=== PATIENT | male | born 1970 | race Caucasian/White ===

== ENCOUNTER → 2021-06-12 13:23 | Outpatient (CLI) | payer OTHER, SELFPAY ==
--- NOTE | 2021-06-12 | DI.MRI.S_ITS ---
PROCEDURE: MR SHOULDER RT W CON INDICATIONS: PAIN IN RIGHT SHOULDER TECHNIQUE: After the administration of 12 mL of dilute intra-articular Gadolinium contrast, oblique coronal T1 and T2 spin echo with fat saturation, oblique sagittal T1 spin echo with and without fat saturation, oblique sagittal T2 fast spin echo with fat saturation, axial T1 spin echo with fat saturation through the shoulder. COMPARISON: [facility], , [place] SHOULDER INJECTION MR/CT RT, 06/12/2021, 13:57. FINDINGS: Rotator cuff: Supraspinatus tendinopathy with partial thickness articular and bursal sided tear of the critical zone. There is small amount of gadolinium contrast seen within the subacromial-subdeltoid bursa suggestive superimposed full-thickness subtle pinpoint perforation. No large or retracted full-thickness defect seen. Infraspinatus tendinopathy with thickening. Possible low-grade partial-thickness articular sided tear. Edema within the infraspinatus muscle suggestive of acute strain versus interstitial tearing Calcific tendinitis is noted at the junction of the infraspinatus and supraspinatus tendons. The teres minor appears intact. Subscapularis thickening and tendinopathy. Bones and bursae: No bone marrow contusions or fractures. Mild glenohumeral and moderate acromioclavicular joint degeneration. Acromion demonstrates conventional anatomy, without an os acromiale. Capsule and soft tissues: Labrum: Jose complex incidentally noted, with thickened cord-like middle glenohumeral ligament, anatomic variant. Superior labral tear with bucket-handle appearance noted on image 13/6 blunted appearance of the posterior labrum for example image 13/5. There is mild adjacent glenoid rim spurring. No definite associated chondral loss. Glenohumeral ligaments: Inferior and superior glenohumeral ligaments are intact. Thickened appearance of the superior glenohumeral ligament incidentally noted. Biceps tendon: Long head of the biceps tendon intact. Rotator interval: Normal signal intensity. Coracohumeral ligament: Intact. IMPRESSION: Supraspinatus tendinopathy with partial thickness articular and bursal sided tear. Leakage of gadolinium contrast into the subacromial-subdeltoid bursa suggesting superimposed full-thickness subtle pinpoint perforations. Calcific tendinitis at the junction of the infraspinatus and supraspinatus tendons. Marrow signal changes and cortical loss suggestive of erosion seen at the anterior aspect of the greater tuberosity. Infraspinatus tendinopathy with low-grade partial thickness articular sided tear. Additional interstitial tearing, and or acute strain of the infraspinatus muscle belly. Bucket-handle tear involving the superior labrum. Chronic appearing posterior labral tear with blunted appearance as described above. Dictated by: Alfredo Pemberton M.D. on 06/13/2021 at 9:11 Approved by: Alfredo Pemberton M.D. on 06/13/2021 at 9:56
--- NOTE | 2021-06-12 | DI.RAD.S_ITS ---
PROCEDURE: [place] SHOULDER INJECTION MR/CT RT INDICATIONS: PAIN IN RIGHT SHOULDER COMPARISON: None. TECHNIQUE: The indications, alternatives, benefits, risks, and complications of the procedure were explained to the patient. Written informed consent was obtained and placed in the chart. The shoulder was examined fluoroscopically and a site for needle placement chosen for entry into the glenohumeral joint from an anterior approach. The skin was prepped and draped in a sterile fashion, and 1% lidocaine infiltrated from skin down to joint capsule. A spinal needle was inserted into the glenohumeral joint, and a small amount of iodinated contrast media injected to confirm intra-articular placement of the needle tip. This was followed by approximately 12 mL dilute solution of a gadolinium containing MR contrast agent. The needle was removed and a dressing was applied. The patient was given postprocedural instructions and sent to the MR suite for MR imaging. FINDINGS: A single fluoroscopic spot image demonstrates intra-articular location of injected iodinated contrast. IMPRESSION: Successful fluoroscopically guided administration of dilute Gadolinium solution into the shoulder joint for MR arthrogram. Dictated by: Alfredo Pemberton M.D. on 06/13/2021 at 14:12 Approved by: Alfredo Pemberton M.D. on 06/13/2021 at 14:12
== END ==
PROVIDERS: PCP Student in an Organized Health Care Education/Training Program; Referring Provider Student in an Organized Health Care Education/Training Program; Visit Provider Student in an Organized Health Care Education/Training Program
DX: M25.519 Pain in unspecified shoulder (principal); S46.011A Strain of muscle(s) and tendon(s) of the rotator cuff of right shoulder, initial encounter; M77.8 Other enthesopathies, not elsewhere classified; S43.431A Superior glenoid labrum lesion of right shoulder, initial encounter
CPT/HCPCS: 23350; 73222; 77002

== ENCOUNTER → 2022-02-19 15:33 | Outpatient (CLI) | payer OTHER, SELFPAY ==
[2022-02-19 17:19] LABS: COVID19 -Nasal RAPID Negative (Negative)
== END ==
PROVIDERS: PCP Student in an Organized Health Care Education/Training Program; Visit Provider Family Medicine Sleep Medicine
DX: Z20.822 Contact with and (suspected) exposure to COVID-19 (principal)
CPT/HCPCS: 87635; C9803

== ENCOUNTER 2022-02-21 09:40 | Day surgery (SDC) | payer OTHER, SELFPAY ==
[2022-02-19 07:18] VITALS: BMI 30.2
[2022-02-21] VITALS (8 sets, daily range): BP systolic 133–153; BP diastolic 54–88; PULSE 64–81; RESP 12–16; TEMP 36.1–36.6; O2SAT 98–100; BMI 30.2
[2022-02-21] MEDS: LACTATED RINGERS 1,000 ML 42 ML IV ×2 (10:35→14:38)
[2022-02-21] MEDS: ACETAMINOPHEN 325 MG TABLET 975 MG PO (10:36)
--- NOTE | 2022-02-21 11:38 | P.HP_ITS ---
History of Present Illness History of Present Illness Date Patient Seen: 02/21/22 Time Patient Seen: 11:38 Chief complaint: Nasal airway obstruction Narrative: 51-year-old male with severe DERRICK on full face BiPAP with history of septoplasty [facility], persistent bilateral nasal obstruction, presents for septoplasty and turbinate reduction. He was last seen in clinic 12/17/2021, no reviewed. No interval health changes. Patient History Medical History Allergic rhinitis Deviated nasal septum History of anesthesia reaction Nasal obstruction Nasal turbinate hypertrophy DERRICK treated with BiPAP Surgical History H/O wrist surgery (1996) Hx of endoscopy Hx of nasal septoplasty (2014) Hx of shoulder surgery (2019) Family & Social History Social History: household members spouse Tobacco & Substance use: Tobacco type cigarettes Smoking Status Former smoker alcohol intake current alcohol intake frequency a few times a month Substance Use Type does not use Meds Home Medications and Allergies Home Medications Medication Instructions Recorded Confirmed Type fluticasone propionate 50 1 spray INTRANASAL DAILY 02/19/22 02/21/22 History mcg/actuation nasal spray,suspension Allergies Allergy/AdvReac Type Severity Reaction Status Date / Time No Known Drug Allergies Allergy Verified 02/19/22 07:26 Review of Systems Review of Systems Narrative: Negative except as noted in the HPI Exam Vital Signs (past 8 hours): - 02/21/22 10:24 Temperature 97.6 F Pulse Rate 67 Respiratory Rate 12 Blood Pressure 133/82 Pulse Oximetry 99 Oxygen Delivery Method Room Air Narrative Exam Narrative: Well-developed well-nourished male in no acute distress heart regular rate and rhythm without murmur, lungs clear to auscultation bilaterally Assessment & Plan Assessment & Plan narrative: Assessment: Nasal airway obstruction and septal deviation despite prior septoplasty, inferior turbinate hypertrophy, allergic rhinitis Plan: Following discussion of the material risks benefits complications and alternatives, patient elected to proceed with septoplasty and turbinate reduction as outpatient. Time Spent With Patient Critical Care time: I spent a total of [] minutes of critical care time on this patient's care today; this time is exclusive of procedural time.
--- NOTE | 2022-02-21 11:38 | PM.PREOP ---
Pre-operative Note Interval Note History & Physical reviewed/Exam performed by Physician: Yes Changes to H&P: No
--- NOTE | 2022-02-21 11:42 | P.OP_ITS ---
Operative Date/Time/Diagnoses Date of procedure: 02/21/22 Time of procedure: 14:59 Pre-op diagnosis: Nasal airway obstruction, septal deviation despite prior septoplasty, inferior turbinate hypertrophy, allergic rhinitis Post-op diagnosis: same Procedure & Clinicians Procedure: 1. Revision septoplasty 2. Bilateral inferior turbinate reduction via intramural cautery Same procedure as scheduled: Yes Indications: 51-year-old male with history of septoplasty in the past, with persistent nasal airway obstruction and septal deviation, presents the above procedures. Following discussion of the material risks benefits complications and alternatives, he elected to proceed. Surgeon: Jah Horta Click Yes if Unassisted: Yes Anesthesia Type: General and Local Operative Notes Findings: 3+ right anterior residual cartilage septal deviation, 1 to 2+ left caudal deviation, 3+ left mid-posterior high deviation. Evidence of prior surgery with extensive scar of primarily the mid-septum, but significant posterior septum, superior, and inferior residual deviated cartilage and bone required resection. Quadrilateral cartilage reduced and straightened. Large LEFT low flap perforation, RIGHT flap without contiguous perforation. Estimated Blood Loss (mL): 40 Procedure in detail: Following identification and confirmation of consent as well as preoperative Afrin nasal spray, the patient was brought to the operating room suite and placed in the supine position. General endotracheal anesthesia was administered. I infiltrated the septum widely bilaterally with 1% lidocaine 1 100,000 epinephrine followed by temporary packing with cotton with Afrin and 4% lidocaine. Following sterile prep and drape, the packing was removed and I performed a right nahomy-transfixion incision, elevated the right mucoperichondrial and mucoperiosteal flap, difficult due to prior surgery and scarring, see findings for details. I disarticulated near the residual bony/cartilaginous junction and elevated the left mucoperiosteal flap, with a tear inferiorly. Deviated portions of the perpendicular plate of the residual ethmoid and vomer were resected. The residual quadrilateral cartilage was further straightened by trimming it inferiorly as well as reducing the maxillary crest. A 2 mm strip of cartilage paralleling the residual 1 cm dorsal and caudal strut was resected to further straighten the quadrilateral cartilage. The hemitransfixion incision was closed with interrupted 5 0 chromic followed by a running 4 0 plain gut mattress suture to reapproximate the septal flaps. At case completion, Busch air-channel silastic splints were placed bilaterally, sutured anteriorly with a single 4 0 nylon. The head of each inferior turbinate had been previously infiltrated with additional local anesthetic and a 25 gauge spinal needle was used to impale the length of the turbinate, with cautery on a setting of 15 activated on slow withdrawal. The turbinates were then outfractured. The procedure completed, sponge and needle counts were correct and the patient was extubated in the operating room and taken to recovery room in stable condition without known complication. Postoperative care: Nasal saline every hour while awake, Vaseline or Polysporin to the nostrils at all times, begin irrigations t.i.d. beginning pod 1. Hu midifier at the bedside blowing on the face. Tylenol alternating with Advil for pain control, oxycodone if necessary for breakthrough pain. Complications: none Post-operative Condition: stable Disposition: same day surgery Plan for aftercare: Nasal saline every hour while awake, begin irrigations t.i.d. tomorrow if desired. Polysporin to the nostrils at all times, Tylenol alternating with Advil for pain control, oxycodone for breakthrough pain. Elevate head of bed, no nose blowing, no straining for 2 weeks. Ice directly under the nose on the upper lip has tolerated 24-48 hours at a minimum. Follow-up in 1 week for nasal splint removal.
[2022-02-21] MEDS: OXYMETAZOLINE NASAL SPRAY 15 ML 2 SPRAYS NASAL ×2 (12:59→13:51)
--- NOTE | 2022-02-21 13:46 | SUR.OPER ---
Supine on padded OR bed, head on gel doughnut, arms padded and tucked at sides, legs uncrossed, safety belt at thigh, tape over blanket over lower legs .
[2022-02-21] MEDS: LIDOCAINE 4% SOLN 50 ML 20 ML TOP (13:50)
[2022-02-21] MEDS: LIDOCAINE 1% W/EPI 20 ML INJ (13:51)
[2022-02-21] MEDS: BACITRACIN OINT 0.9 GM PCKT 1 APPLIC TOP (13:52)
[2022-02-21] MEDS: OXYCODONE IR 5 MG TABLET PO (15:49)
== END 2022-02-21 16:15 | disposition home or self-care (01) ==
PROVIDERS: PCP Student in an Organized Health Care Education/Training Program; Referring Provider Otolaryngology; Visit Provider Otolaryngology
PROC: (CPT 30520; principal; 2022-02-21 11:30)
DX: J34.89 Other specified disorders of nose and nasal sinuses (principal); J34.2 Deviated nasal septum; J98.8 Other specified respiratory disorders; J34.81 Nasal mucositis (ulcerative); G47.30 Sleep apnea, unspecified
CPT/HCPCS: 30520; 30802; A9270; J1100; J2405; J2704; J3010